=== PATIENT | female | born 1975 | race Caucasian/White ===

== ENCOUNTER 2016-08-26 20:56 | Emergency (ER) | payer BC ==
[2016-08-26 23:10] VITALS: BP 119/76
[2016-08-26] MEDS ORDERED: NS 0.9% 1000 ML* 1,000 ML IV ONE (23:12)
[2016-08-26] MEDS ORDERED: Al Hydrox/Mg Hydrox/Simet LIQ* 30 ML UDC PO ONE (23:13)
[2016-08-26] MEDS ORDERED: Lidocaine 2% VISCOUS* 15 ML UDC PO ONE (23:13)
[2016-08-26 23:42] LABS: Hematocrit 43 % (35-47); Hemoglobin 14.1 g/dl (12.0-16.0); Mean Corpuscular HGB Conc 33 g/dl (31-36); Mean Corpuscular Hemoglobin 29 pg (27-31); Mean Corpuscular Volume 87 fL (80-97); Mean Platelet Volume 9 um3 (7.4-10.4); Red Blood Count 4.86 10^6/ul (4.0-5.4); Red Cell Distribution Width 13 % (10.5-15); White Blood Count 10.4 10^3/ul (3.5-10.8)
[2016-08-27 00:01] LABS: ALT 19 U/L (7-52); AST 16 U/L (13-39); Albumin 4.3 g/dL (3.2-5.2); Alkaline Phosphatase 66 U/L (34-104); Anion Gap 5 mmol/L (2-11); BUN/Creatinine Ratio 14.3 (8-20); Blood Urea Nitrogen 12 mg/dL (6-24); C Reactive Protein 3.99 mg/L (< 5.00); CO2 Carbon Dioxide 27 mmol/L (22-32); Calcium 9.3 mg/dL (8.6-10.3); Chloride 105 mmol/L (101-111); EGFR African American 95.6 (>60); EGFR Non-African American 74.4 (>60); Globulin 2.5 g/dL (2-4); Glucose 101 mg/dL (70-100); Lipase 19 U/L (11.0-82.0); Magnesium 2.1 mg/dL (1.9-2.7); Potassium 3.8 mmol/L (3.5-5.0); Sodium 137 mmol/L (133-145); Total Protein 6.8 g/dL (6.4-8.9)
[2016-08-27 00:04] LABS: Troponin I 0.01 ng/mL (<0.04)
[2016-08-27] MEDS ORDERED: Ketorolac INJ* 30 MG/ML 1 ML VIAL IV PUSH ONE (00:13)
--- NOTE | 2016-08-27 00:25 | ED ---
Justina Min Rebecca, scribed for Arthur Shipman MD on 08/26/16 at 2313 . HPI Chest Pain - HPI Summary HPI Summary: Pt is a 41 y/o F who presents to ED c/o CP. Pain began suddenly tonight at 1900 when taking her night medications and has been intermittent since onset. Pain is located in the midsternum and radiates to the left and right lateral regions. Pain characterized as burning and currently ranked 7/10. Sx aggravated by swallowing and certain positions, alleviated by nothing, unchanged by Nexium and Soma (1930). Additionally c/o lymphadenopathy. Denies N/V. PMHx GERD, pleurisy, IBS. Prior episodes of pleurisy did not consist of the current, burning pain. - History of Current Complaint Chief Complaint: EDChestPainROMI Time Seen by Provider: 08/26/16 23:07 Hx Obtained From: Patient Onset/Duration: Started Hours Ago, Still Present Time of Onset: 19:00 Timing: Intermittent Initial Severity: Moderate Current Severity: Moderate Pain Intensity: 7 Pain Scale Used: 0-10 Numeric Chest Pain Location: Mid Sternal Chest Pain Radiates: Yes Chest Pain Radiates To:: Other - Bilateral lateral chest regions Character: Burning Aggravating Factor(s): Position, Other: - Swallowing Alleviating Factor(s): Nothing Associated Signs and Symptoms: Positive: Other: - lymphadenopathy. Negative: Nausea, Vomiting - Allergy/Home Medications Allergies/Adverse Reactions: Allergies Allergy/AdvReac Type Severity Reaction Status Date / Time Sulfa Drugs Allergy Intermediate Hives Verified 07/17/13 12:31 Antihistamines, Allergy Hives Verified 07/17/13 12:31 Chlorpheniramine-ty Antihistamines, Allergy Hives Verified 07/17/13 12:31 Diphenhydramine-typ Antihistamines, Allergy Hives Verified 07/17/13 12:31 Loratadine-type PMH/Surg Hx/FS Hx/Imm Hx Endocrine/Hematology History: Denies: Hx Diabetes Cardiovascular History: Reports: Other Cardiovascular Problems/Disorders - PMHx Pleurisy Denies: Hx Congestive Heart Failure, Hx Hypertension Respiratory History: Reports: Hx Asthma GI History: Reports: Hx Gastroesophageal Reflux Disease, Hx Irritable Bowel Denies: Other GI Disorders History: Denies: Hx Renal Disease, Other Problems/Disorders Musculoskeletal History: Reports: Hx Fibromyalgia - Surgical History Surgery Procedure, Year, and Place: HYSTERECTOMY Infectious Disease History: No Infectious Disease History: Denies: Traveled Outside the [place] in Last 30 Days - Family History Known Family History: Positive: Other - asthma, fibromyalgia, Lupus - Social History Alcohol Use: None Substance Use Type: Reports: None Hx Tobacco Use: No Review of Systems Positive: Other - Lymphadenopathy Positive: Chest Pain - midsternal burning Negative: Vomiting, Nausea All Other Systems Reviewed And Are Negative: Yes Physical Exam Triage Information Reviewed: Yes Vital Signs On Initial Exam: Initial Vitals Temp Pulse Resp BP Pulse Ox 98.3 F 88 20 123/76 97 08/26/16 21:10 08/26/16 21:10 08/26/16 21:10 08/26/16 21:10 08/26/16 21:10 Vital Signs Reviewed: Yes Appearance: Positive: Well-Appearing, Pain Distress - mildly uncomfortable Skin: Positive: Warm Eyes: Positive: KACIE ENT: Positive: Hearing grossly normal Neck: Positive: Supple Respiratory/Lung Sounds: Positive: Clear to Auscultation, Breath Sounds Present Cardiovascular: Positive: RRR Abdomen Description: Positive: Nontender, Soft Bowel Sounds: Positive: Present Neurological: Positive: Sensory/Motor Intact, Normal Gait Psychiatric: Positive: Affect/Mood Appropriate Diagnostics - Vital Signs Vital Signs Temp Pulse Resp BP Pulse Ox 08/26/16 22:13 99.7 F 79 18 115/75 99 08/26/16 21:10 98.3 F 88 20 123/76 97 - Laboratory Lab Results: Lab Results 08/26/16 08/26/16 Range/Units 23:15 23:15 WBC 10.4 (3.5-10.8) 10^3/ul RBC 4.86 (4.0-5.4) 10^6/ul Hgb 14.1 (12.0-16.0) g/dl Hct 43 (35-47) % MCV 87 (80-97) fL MCH 29 (27-31) pg MCHC 33 (31-36) g/dl RDW 13 (10.5-15) % Plt Count 240 (150-450) 10^3/ul MPV 9 (7.4-10.4) um3 Neut % (Auto) 64.3 (38-83) % Lymph % (Auto) 24.6 L (25-47) % [place] % (Auto) 8.1 (1-9) % Eos % (Auto) 2.0 (0-6) % Baso % (Auto) 1.0 (0-2) % Absolute Neuts (auto) 6.7 (1.5-7.7) 10^3/ul Absolute Lymphs (auto) 2.6 (1.0-4.8) 10^3/ul Absolute Monos (auto) 0.8 (0-0.8) 10^3/ul Absolute Eos (auto) 0.2 (0-0.6) 10^3/ul Absolute Basos (auto) 0.1 (0-0.2) 10^3/ul Absolute Nucleated RBC 0 10^3/ul Nucleated RBC % 0 Sodium 137 (133-145) mmol/L Potassium 3.8 (3.5-5.0) mmol/L Chloride 105 (101-111) mmol/L Carbon Dioxide 27 (22-32) mmol/L Anion Gap 5 (2-11) mmol/L BUN 12 (6-24) mg/dL Creatinine 0.84 (0.51-0.95) mg/dL Est GFR ( Amer) 95.6 (>60) Est GFR (Non-Af Amer) 74.4 (>60) BUN/Creatinine Ratio 14.3 (8-20) Glucose 101 H (70-100) mg/dL Calcium 9.3 (8.6-10.3) mg/dL Magnesium 2.1 (1.9-2.7) mg/dL Total Bilirubin 0.40 (0.2-1.0) mg/dL AST 16 (13-39) U/L ALT 19 (7-52) U/L Alkaline Phosphatase 66 (34-104) U/L Troponin I 0.01 (<0.04) ng/mL C-Reactive Protein 3.99 (< 5.00) mg/L Total Protein 6.8 (6.4-8.9) g/dL Albumin 4.3 (3.2-5.2) g/dL Globulin 2.5 (2-4) g/dL Albumin/Globulin Ratio 1.7 (1-3) Lipase 19 (11.0-82.0) U/L Beta HCG, Quant < 0.60 mIU/mL Result Diagrams: 08/26/16 23:15 08/26/16 23:15 Lab Statement: Any lab studies that have been ordered have been reviewed, and results considered in the medical decision making process. - Radiology CXR Xray Interpretation: No Acute Changes - No acute cardiopulmonary disease. Radiology Interpretation Completed By: ED Physician - EKG 2057 Cardiac Rate: NL - 83 bpm EKG Rhythm: Sinus Rhythm - normal EKG Interpretation: No acute ischemia Re-Evaluation - Re-Evaluation First Eval Re-Evaluation Time: 00:58 Change: Improved Comment: Pt is feeling significantly better. Explained and discussed d/c with pt. She agrees and understands. Chest Pain Course/Dx - Course Assessment/Plan: Pt is a 41 y/o F who presents to ED with a CC of CP for 4 hours. Additionally c/o lymphadenopathy. Denies N/V. EKG reveals no acute ischemia. CXR reveals no acute cardiopulmonary disease. Will be d/c to home with a followup with her PCP. - Diagnoses Provider Diagnoses: Chest pain Discharge - Discharge Plan Condition: Stable Disposition: HOME Patient Education Materials: Chest Pain (ED) Referrals: Max Ha MD [Primary Care Provider] - 3 Days (Follow up with your primary care physician within the next 3 days. ) The documentation as recorded by the Justina godinez Rebecca accurately reflects the service I personally performed and the decisions made by me, Arthur Shipman MD.
--- NOTE | 2016-08-27 07:44 | RAD ---
INDICATION: Chest pain COMPARISON: May 09, 2013 TECHNIQUE: PA and lateral dual-energy views were obtained. FINDINGS: Bones/Soft Tissues: There are no acute bony findings. Cardiomediastinal: The cardiomediastinal silhouette is normal. Lungs: There are no infiltrates. Pleura: There are no pleural effusions. Other: None IMPRESSION: NO ACTIVE DISEASE.
== END 2016-08-27 01:35 | disposition home or self-care (01) ==
LOC: ED 20:56
DX: R07.9 Chest pain, unspecified (principal); R59.1 Generalized enlarged lymph nodes
CPT/HCPCS: 36415; 71020; 80053; 83690; 83735; 84484; 84702; 85025; 86140; 93005; 96361; 96374; 99282; A9270-GY; J1885

== ENCOUNTER 2018-01-09 17:18 | Emergency (ER) | payer BC ==
[2018-01-09 17:34] VITALS: BP 127/76
[2018-01-09] MEDS ORDERED: predniSONE TAB* 20 MG PO ONE (17:41)
[2018-01-09] MEDS ORDERED: Clindamycin CAP* 150 MG PO ONE (17:41)
--- NOTE | 2018-01-09 18:24 | RAD ---
INDICATION: Left neck swelling. COMPARISON: There are no prior studies available for comparison. TECHNIQUE: A CT scan of the neck was performed without intravenous contrast. Contiguous axial sections were obtained from the skull base through the lung apices. Images were reconstructed in the coronal and sagittal planes. The study is limited without contrast. FINDINGS: The airway is patent. The epiglottis and aryepiglottic folds appear within normal limits. No retropharyngeal soft tissue swelling is noted. The left submandibular gland is enlarged and heterogeneous. There is interstitial stranding and fluid around the gland which extends inferiorly along the anterior aspect of the left sternocleidomastoid muscle most consistent with sialadenitis. No calculus is seen. No focal fluid collection or abscess is noted. The parotid glands appear within normal limits. No significant enlarged lymph nodes are seen. The thyroid gland appears within normal limits. The lung apices appear clear. The visualized portion of the paranasal sinuses and mastoid air cells appear clear. No significant focal osseous abnormality is seen. IMPRESSION: ENLARGEMENT OF THE LEFT SUBMANDIBULAR GLAND WITH SURROUNDING INTERSTITIAL STRANDING AND FLUID MOST CONSISTENT WITH SIALADENITIS. RECOMMEND CLINICAL CORRELATION AND FOLLOW-UP.
--- NOTE | 2018-01-09 19:28 | UC ---
Taisha Min Jade, scribed for Bay Chaney MD on 01/09/18 at 1748 . Allergic Reaction HPI - HPI Summary HPI Summary: Pt is a 42 y/o female who presents to [facility] c/o neck swelling. She states mild swelling started this morning, but suddenly became much worse while eating chicken wings at dinner. The swelling is mainly of her left neck, but radiates to her left ear and the back of her neck. Pt denies any pain in the affected area, but states it feels numb. Her skin is also red over her chest, neck, arms , and shoulders. She had a crown put in a molar in her left mandible, and this tooth has been very sensitive to temperature for the past few months. Pt also states shes had really thick bloody mucus in her nose the past month or so. Pt is allergic to anti-histamines and peanuts, but denies eating any peanuts. - History of Current Complaint Chief Complaint: UCAllergicReaction Stated Complaint: SINUS, THROAT SWELLING, TROUBLE BREATHING Time Seen by Provider: 01/09/18 17:31 Hx Obtained From: Patient Onset/Duration: Sudden Onset, Still Present Severity Currently: Moderate Pain Intensity: 4 Pain Scale Used: 0-10 Numeric Location: Discrete @ - Left neck, left ear, and back of neck Character: Swelling Associated Signs And Symptoms: Negative: Difficulty Breathing - Allergies/Home Medications Allergies/Adverse Reactions: Allergies Allergy/AdvReac Type Severity Reaction Status Date / Time MS Sulfa Drugs [Sulfa Drugs] Allergy Intermediate Hives Verified 01/09/18 17:25 chlorpheniramine Allergy Hives Verified 01/09/18 17:37 diphenhydramine Allergy Hives Verified 01/09/18 17:37 loratadine Allergy Hives Verified 01/09/18 17:37 Home Medications: Home Medications Amitriptyline TAB* [Elavil TAB*] 20 mg PO BEDTIME 01/09/18 [History Confirmed ] Minocycline HCl [Minocycline Hydrochloride] 100 mg PO 01/09/18 [History] PMH/Surg Hx/FS Hx/Imm Hx Endocrine History: Other - NEGATIVE: diabetes Other Endocrine History: . Cardiovascular History: Other - NEGATIVE: HTN Other Cardiovascular History: . Respiratory History: Asthma - Surgical History Surgical History: Yes Surgery Procedure, Year, and Place: HYSTERECTOMY - Family History Known Family History: Positive: Other - asthma, fibromyalgia, Lupus - Social History Alcohol Use: None Substance Use Type: None Smoking Status (MU): Never Smoked Tobacco Review of Systems Skin: Rash - Redness over chest, neck, arms, and shoulders, Other - Swelling over left neck, left ear, and back of neck ENT: Dental Pain - [place] put in molar in left mandible - sensitive to temperature, Nasal Discharge - Bloody thick mucus Neurological: Numbness - Over left neck, left ear, and back of neck All Other Systems Reviewed And Are Negative: Yes Physical Exam - Summary Physical Exam Summary: General: well-appearing, no pain distress Skin: warm, color reflects adequate perfusion, dry Head: normal Eyes: EOMI, KACIE ENT: normal Neck: supple, nontender. Swelling underneath left mandible and left neck. Respiratory: CTA, breath sounds present Cardiovascular: RRR Abdomen: soft, nontender Bowel: present Musculoskeletal: normal, strength/ROM intact Neurological: sensory/motor intact, A&O x3 Psychological: affect/mood appropriate Triage Information Reviewed: Yes Vital Signs: Initial Vital Signs Temp 99.1 F 01/09/18 17:27 Pulse 90 01/09/18 17:27 Resp 16 01/09/18 17:27 BP 127/76 01/09/18 17:27 Pulse Ox 98 01/09/18 17:27 Vital Signs Reviewed: Yes Diagnostics - Radiology Neck CT Xray Interpretation: Positive (See Comments) - ENLARGEMENT OF THE LEFT SUBMANDIBULAR GLAND WITH SURROUNDING INTERSTITIAL STRANDING AND FLUID MOST CONSISTENT WITH SIALADENITIS. RECOMMEND CLINICAL CORRELATION AND FOLLOW-UP. physician reviewed radiology report. Radiology Interpretation Completed By: Radiologist Allergic Reaction Course/Dx - Course Course Of Treatment: DISCUSSED DX. F/U ENT; RE EVAL SOONER IF NEEDED. - Differential Dx/Diagnosis Provider Diagnoses: LEFT SUB MANDIBULAR SIALADENITIS Discharge - Sign-Out/Discharge Documenting (check all that apply): Discharge/Admit/Transfer - Discharge - Discharge Plan Condition: Stable Disposition: HOME Prescriptions: Cephalexin CAP* [Keflex 500 CAP*] 500 mg PO QID #40 cap HYDROcodone/ACETAMIN 5-325 MG* [[place] 5-325 TAB*] 1 tab PO Q4H PRN #20 tab MDD 6 PRN Reason: Pain Patient Education Materials: Sialoadenitis (ED) Referrals: Cyrus Phillip MD [Medical Doctor] - Kristina Palmer MD [Primary Care Provider] - Additional Instructions: FOLLOW UP WITH ENT. GET RECHECKED FOR ANY WORSENING OF YOUR CONDITION OR QUESTIONS OR CONCERNS. - Billing Disposition and Condition Condition: STABLE Disposition: Home The documentation as recorded by the Taisha godinez Jade accurately reflects the service I personally performed and the decisions made by me, Bay Chaney MD.
== END 2018-01-09 18:45 | disposition home or self-care (01) ==
LOC: UCEAST 17:18
DX: K11.20 Sialoadenitis, unspecified (principal); R21 Rash and other nonspecific skin eruption; J45.909 Unspecified asthma, uncomplicated; Z88.2 Allergy status to sulfonamides; Z88.8 Allergy status to other drugs, medicaments and biological substances; Z82.5 Family history of asthma and other chronic lower respiratory diseases; Z83.49 Family history of other endocrine, nutritional and metabolic diseases
CPT/HCPCS: 70490; 99212; A9270-GY; G0463; J7512